=== PATIENT | male | born 1985 | race African-American/Black ===

== ENCOUNTER 2025-01-02 21:24 | Emergency (ER) | payer OTHER ==
[~2025-01-02] VITALS: Ht 167.6 cm; Wt 90.0 kg
[2025-01-02 21:26] VITALS: O2SAT 98
[2025-01-02 21:27] VITALS: BP 143/97; PULSE 74; RESP 18; TEMP 36.6; O2SAT 100
== END 2025-01-02 23:01 | disposition left against medical advice (07) ==
LOC: ER 21:24
DX: R07.89 Other chest pain (principal); Z53.21 Procedure and treatment not carried out due to patient leaving prior to being seen by health care provider
CPT/HCPCS: 71045; 93005

== ENCOUNTER 2025-05-25 11:23 | Emergency (ER) | payer OTHER ==
[~2025-05-25] VITALS: Ht 172.7 cm; Wt 81.0 kg
[2025-05-25 11:36] VITALS: O2SAT 100
[2025-05-25 12:58] LABS: BASOPHILS % 0.7 % (0.0-2.0); EOSINOPHILS % 9.9 % (0.0-5.0); HEMATOCRIT. 42.6 % (42.0-52.0); HEMOGLOBIN. 14.0 g/dL (14.0-18.0); LYMPHOCYTES % 25.9 % (20.0-50.0); MEAN PLATELET VOLUME 7.7 fl (7.4-10.4); MONOCYTES % 4.3 % (2.0-8.0); NEUTROPHILS % 59.2 % (40.0-76.0); PLATELET 226 x1000/uL (130-400); RED BLOOD CELL COUNT 4.83 mill/uL (4.7-6.1); RED CELL DISTRIBUTION WIDTH 13.7 % (11.6-14.6)
[2025-05-25 13:17] LABS: CREATININE 1.1 mg/dL (0.6-1.3); UREA NITROGEN BLOOD 11 mg/dL (9-23)
[2025-05-25] MEDS ORDERED: METR-167 MT (13:23)
[2025-05-25] MEDS ORDERED: DOXY100C5 MT (13:23)
[2025-05-25] MEDS: CEFTRIAXONE SODIUM 500MG VIAL IM ONE (13:58)
[2025-05-25 14:15] LABS: CLARITY URINE CLEAR (CLEAR); COLOR URINE YELLOW (YELLOW); GLUCOSE URINE NEGATIVE (NEGATIVE); KETONES URINE TRACE (NEGATIVE); LEUKOCYTE ESTERASE URINE NEGATIVE (NEGATIVE); NITRITE URINE NEGATIVE (NEGATIVE); OCCULT BLOOD URINE NEGATIVE (NEGATIVE); PH URINE 8.0 (4.5-8.0); PROTEIN URINE NEGATIVE (NEGATIVE); SPECIFIC GRAVITY URINE 1.024 (1.005-1.030); UROBILINOGEN URINE 1.0 E.U./dL (0.2-1.0)
[2025-05-25 14:25] VITALS: BP 163/110; PULSE 76; RESP 18; TEMP 36.9; O2SAT 99
[2025-05-28 04:09] LABS: CHLAMYDIA TRACHOMATIS NAA Negative (Negative); NEISSERIA GONORRHOEAE NAA Negative (Negative)
== END 2025-05-25 14:25 | disposition home or self-care (01) ==
LOC: ER 11:23
DX: Z11.3 Encounter for screening for infections with a predominantly sexual mode of transmission (principal); Z72.51 High risk heterosexual behavior; Z91.030 Bee allergy status; Z79.899 Other long term (current) drug therapy
CPT/HCPCS: 99283; 86592; 87491; 87591; 80048; 81003; 85025; 36415; 96372; J0696